=== PATIENT | male | born 1990 | race Caucasian/White ===

== ENCOUNTER 2018-01-13 20:00 | Emergency (ER) | payer MEDICAID ==
--- NOTE | 2018-01-13 22:23 | ED PDOC ---
HPI: Eye Injury/Pain Time Seen by Provider: 01/13/18 21:05 Chief Complaint (Nursing): Eye Problem Chief Complaint (Provider): right eye foreign body History Per: Patient (27 y/o male here with right eye foreign body sensation x 3 days. Notes small piece of unknown material in eye. Denies any visual changes. No contact beto/glass use.) Past Medical History Reviewed: Historical Data, Nursing Documentation, Vital Signs Vital Signs: Last Vital Signs Temp 98.5 F 01/13/18 20:04 Pulse 65 01/13/18 20:04 Resp 16 01/13/18 20:04 BP 126/74 01/13/18 20:04 Pulse Ox 98 01/13/18 20:04 - Medical History PMH: Asthma - Family History Family History: States: Unknown Family Hx - Immunization History Hx Tetanus Toxoid Vaccination: No Hx Influenza Vaccination: No Hx Pneumococcal Vaccination: No - Home Medications Home Medications: Ambulatory Orders Medication Instructions Recorded Albuterol 0.083% 02/10/16 Tobramycin 0.3% [Tobrex 0.3% Ophth 2 drop OP QID #1 bottle 02/10/16 Soln] Albuterol HFA [Ventolin HFA 90 2 puff IH [id number] PRN #1 each 08/31/16 mcg/actuation (8 g)] Azithromycin [Zithromax] 250 mg PO DAILY #6 tab 08/31/16 Promethazine DM [Phenergan DM 5 - 10 ml PO Q8 PRN #120 ml 08/31/16 Syrup] Ciprofloxacin 0.3% [Ciloxan 0.3% 1 drop RIGHTEYE QID #1 bottle 01/13/18 Ophth SOLN] - Allergies Allergies/Adverse Reactions: Allergies Allergy/AdvReac Type Severity Reaction Status Date / Time seafood Allergy Uncoded 02/10/16 11:56 Review of Systems ROS Statement: Except As Marked, All Systems Reviewed And Found Negative Physical Exam - Reviewed Nursing Documentation Reviewed: Yes Vital Signs Reviewed: Yes (visual acuity reviewed wnl) - Physical Exam Appears: Positive for: Well, Non-toxic, No Acute Distress Head Exam: Positive for: ATRAUMATIC, NORMAL INSPECTION, NORMOCEPHALIC Skin: Positive for: Normal Color, Warm, DRY Eye Exam: Positive for: EOMI, PERRL, Other. Negative for: Normal appearance ( right eye with conjunctival injection; (+) small piece foreign body ?metal anterior in front of pupil; no fluorescein uptake) ENT: Positive for: Normal ENT Inspection Neck: Positive for: Normal, Painless ROM Cardiovascular/Chest: Positive for: Regular Rate, Rhythm Respiratory: Positive for: CNT, Normal Breath Sounds Gastrointestinal/Abdominal: Positive for: Normal Exam, Soft Back: Positive for: Normal Inspection Extremity: Positive for: Normal ROM Neurologic/Psych: Positive for: Alert, Oriented - ECG O2 Sat by Pulse Oximetry: 98 - Progress ED Course And Treament: Right eye irrigated NS 1 liter Disposition - Clinical Impression Clinical Impression: Foreign body in eye - Patient ED Disposition Is Patient to be Admitted: No - Disposition Referrals: Don Lea MD [Staff Provider] - Disposition: Routine/Home Disposition Time: 22:24 Condition: FAIR Prescriptions: Ciprofloxacin 0.3% [Ciloxan 0.3% Ophth SOLN] 1 drop RIGHTEYE QID #1 bottle Instructions: Foreign Body in Eye (DC) Forms: [employer] (Greek), [facility] ED School/Work Excuse Procedure - Procedure and Findings -: Verbal consent prior to procedure 18 gauge needle used to partially remove material anterior right eye.
[2018-01-13 23:32] VITALS: BP 122/74; PULSE 84; RESP 17; TEMP 98.3; O2SAT 100
== END 2018-01-13 23:22 | disposition home or self-care (01) ==
LOC: H.ER 20:00
DX: T15.01XA Foreign body in cornea, right eye, initial encounter (principal)